=== PATIENT | female | born 1955 | race Caucasian/White ===

== ENCOUNTER → 2016-09-16 | Outpatient (CLI) | payer OTHER ==
[~2016-09-16] MED LIST: ARICEPT PO; BENICAR HCT 40-1 TA1 PO; COREG3.125 MG PO; EFFEXOR XR PO; EFFEXOR75 M2 PO; FLONASE 0.05% N16 G1; HYDROXYZINE HCL50 MG PO; NEXIUM PO; PANTOPRAZOLE SO40 MG PO; PLAVIX PO; PREMARIN PO; SIMVASTATIN80 MG PO; TOPAMAX50 MG PO; VESICARE; WELLBUTRIN SR150 MG PO; ZOCOR PO; ZYRTEC PO
--- NOTE | ~2016-09-16 | NM19 ---
[facility] A Service of [facility] RADIOLOGY TEXT RESULTS PATIENT: ANNELISE GREENE LOCATION: [facility] : 55 UNIT #: [id number] AGE: [address]: ISIAH LEE APRN SEX: F ORDER DR: [id number] [facility] [address] [place], [place] [address] [id number] O MR#: [id number] Acc #: [id number] NAME: ANNELISE GREENE : 1955 SEX: F STUDY DATE/TIME: 09/16/2016 10:48 UNIT: [facility] ROOM: STUDY DESCRIPTION: [place] Gastric Emptying Study Attending Physician: Isiah Lee Aprn Referring Physician: Isiah Lee Aprn Ordering Physician: Isiah Lee Aprn MEDICAL IMAGING REPORT This report is preliminary unless electronic signature is present EXAM Gastric emptying scan 09/16/2016 HISTORY Nausea, vomiting, belching and regurgitation, gastroesophageal reflux disease, abdominal bloating, lower abdominal pain, chest pain and back pain, constipation, early satiety. Symptoms for the past 7 months. TECHNIQUE The patient ingested 587 microcuries of technetium 99m tagged sulfur colloid in eggs. Images of the upper abdomen were obtained for 4 hours. FINDINGS After 1 hour, the stomach was 13% empty after 2 hours the stomach was 48% empty and after 4 hours the stomach was 96% empty. Normal range is greater than 60% empty after 2 hours of imaging and greater than 90% empty after 4 hours of imaging. IMPRESSION Delayed gastric emptying after 2 hours of imaging and normal gastric emptying after 4 hours of imaging. Dictated by... Sixto Perez M.D. THIS IS AN ELECTRONICALLY VERIFIED REPORT Sixto Perez M.D. at 09/16/2016 5:34 PM KRT/pcl TD: 09/16/2016 17:09 [facility] A Service of [facility] RADIOLOGY TEXT RESULTS PATIENT: ANNELISE GREENE LOCATION: [facility] : 55 UNIT #: [id number] AGE: [address]: ISIAH LEE APRN SEX: F ORDER DR: ALL #: [id number] MEDICAL IMAGING REPORT Page 1 of 1 COPY
== END | disposition home or self-care (01) ==
LOC: CNUC 09:10
DX: R11.2 Nausea with vomiting, unspecified (principal); K30 Functional dyspepsia
CPT/HCPCS: 78264; A9541